=== PATIENT | male | born 1980 | race Caucasian/White ===

== ENCOUNTER 2018-01-03 07:41 | Emergency (ER) | payer SELFPAY ==
[2018-01-03 08:24] VITALS: BP 126/78
--- NOTE | 2018-01-03 08:52 | ED ---
Respiratory - HPI Summary HPI Summary: 37 yr old male with the complaint of runny nose, sore throat, coughing, muscle aches. Onset four days ago. he has been exposed to people with influenza at work. He has no SOB. No other complaints. - History of Current Complaint Chief Complaint: UCGeneralIllness Stated Complaint: COUGH,CONGESTION Time Seen by Provider: 01/03/18 08:34 Pain Intensity: 8 - Allergy/Home Medications Allergies/Adverse Reactions: Allergies Allergy/AdvReac Type Severity Reaction Status Date / Time hydrocodone Allergy Difficulty Verified 01/03/18 08:14 Breathing Home Medications: Home Medications D-Methorphan/PE/Acetaminophen [Daytime Cold Multi-Symp Gelcap] 1 each PO DAILY PRN 01/03/18 [History Confirmed 01/03/18] Diphenhydra/Phenyleph/Acetamin [Theraflu Severe Cold & Co 25-10-650 mg] 1 pow PO BEDTIME PRN 01/03/18 [History Confirmed 01/03/18] PMH/Surg Hx/FS Hx/Imm Hx Respiratory History: Reports: Hx Asthma - Surgical History Surgery Procedure, Year, and Place: right arm laceration as child Infectious Disease History: No Infectious Disease History: Denies: Traveled Outside the [place] in Last 30 Days - Family History Known Family History: Positive: None - Social History Occupation: Employed Full-time Alcohol Use: Rare Substance Use Type: Reports: None Smoking Status (MU): Former Smoker Review of Systems Positive: Chills, Fatigue Positive: Sore Throat, Nasal Discharge Positive: Cough Positive: Myalgia All Other Systems Reviewed And Are Negative: Yes Physical Exam Triage Information Reviewed: Yes Vital Signs On Initial Exam: Initial Vitals Temp Pulse Resp BP Pulse Ox 98.6 F 83 20 126/78 98 01/03/18 08:18 01/03/18 08:18 01/03/18 08:18 01/03/18 08:18 01/03/18 08:18 Vital Signs Reviewed: Yes Appearance: Positive: Well-Appearing, No Pain Distress Skin: Positive: Warm, Skin Color Reflects Adequate Perfusion Head/Face: Positive: Normal Head/Face Inspection Eyes: Positive: EOMI ENT: Positive: Pharyngeal erythema, Nasal congestion, TMs normal. Negative: Sinus tenderness Neck: Positive: Nontender Respiratory/Lung Sounds: Positive: Clear to Auscultation, Breath Sounds Present Cardiovascular: Positive: RRR. Negative: Murmur Abdomen Description: Positive: Nontender Musculoskeletal: Positive: Strength/ROM Intact Neurological: Positive: Sensory/Motor Intact, Alert, Oriented to Person Place, Time, CN Intact II-III Psychiatric: Positive: Normal - Geraldine Coma Scale Best Eye Response: 4 - Spontaneous Best Motor Response: 6 - Obeys Commands Best Verbal Response: 5 - Oriented Coma Scale Total: 15 Diagnostics - Vital Signs Vital Signs Temp Pulse Resp BP Pulse Ox 01/03/18 08:18 98.6 F 83 20 126/78 98 - Laboratory Lab Statement: Any lab studies that have been ordered have been reviewed, and results considered in the medical decision making process. Disposition - Course Course Of Treatment: 37 yr old with influenza exposure and symptomatic. Rx wtih Tamiflu. - Diagnoses Provider Diagnoses: Influenza Discharge - Discharge Plan Condition: Good Disposition: HOME Prescriptions: Oseltamivir CAP* [Tamiflu CAP*] 75 mg PO BID #10 cap Patient Education Materials: Influenza (ED) Forms: *Work Release Referrals: [facility] [Outside] No Primary Care Phys,[facility] [Primary Care Provider] -
== END 2018-01-03 09:11 | disposition home or self-care (01) ==
LOC: UCCORT 07:41
DX: J11.1 Influenza due to unidentified influenza virus with other respiratory manifestations (principal); Z88.5 Allergy status to narcotic agent
CPT/HCPCS: 99212; G0463